=== PATIENT | female | born 1985 | race Caucasian/White ===

== ENCOUNTER 2023-02-18 00:32 | Emergency (ER) | payer MEDICAID ==
[~2023-02-18] VITALS: Ht 157.5 cm; Wt 84.1 kg
[~2023-02-18 00:32] MED LIST: CYCL-1 PO; POTA-188 PO
[2023-02-18 00:41] VITALS: BP_DIAS 118; RESP 16; TEMP 98.6; O2SAT 100
[2023-02-18] MEDS ORDERED: amLODIPine 5mg tablet PO ONE (00:55)
[2023-02-18 01:17] VITALS: BP_SYST 180; PULSE 82
== END 2023-02-18 01:18 ==
LOC: ER 00:32
DX: I10 Essential (primary) hypertension (principal); F15.10 Other stimulant abuse, uncomplicated; F11.90 Opioid use, unspecified, uncomplicated; Z79.899 Other long term (current) drug therapy
CPT/HCPCS: 99283

== ENCOUNTER 2023-12-11 15:54 | Inpatient (IN) | payer MEDICAID ==
[~2023-12-11] VITALS: Ht 157.5 cm; Wt 67.9 kg
[2023-12-11] MEDS: cloNIDine 0.3mg/24 hour patch (7 day patch) TD ONE (16:40)
[2023-12-11 17:09] LABS: BASOPHILS % (AUTO) 0.6 % (0-1); EOSINOPHILS % (AUTO) 0.3 % (0-6); HEMATOCRIT 39.9 % (35.0-45.0); HEMOGLOBIN 12.8 g/dl (12.0-16.0); LYMPHOCYTES # (AUTO) 1.2 X10'3 (1.1-4.8); LYMPHOCYTES % (AUTO) 18.4 % (21-51); MEAN CORPUSCULAR HEMOGLOBIN 23.1 PG (27.0-31.0); MEAN CORPUSCULAR VOLUME 72.2 FL (78-98); MEAN PLATELET VOLUME 7.1 FL (7.4-10.4); MONOCYTES # (AUTO) 0.5 X10'3 (0-0.9); MONOCYTES % (AUTO) 7.9 % (2-12); NEUTROPHILS # (AUTO) 4.9 X10'3 (1.8-7.7); NEUTROPHILS % (AUTO) 72.8 % (42-75); PLATELET COUNT 354 X10'3 (140-440); RED BLOOD COUNT 5.52 X10'6 (4.20-5.60); RED CELL DISTRIBUTION WIDTH 20.4 % (11.5-14.5); WHITE BLOOD COUNT 6.7 X10'3 (4.5-11.0)
[2023-12-11] MEDS: cloNIDine 0.1 mg tablet PO ONE (17:18)
[2023-12-11] MEDS: ketorolac tromethamine 15mg/ml inj. IV ONE (17:18)
[2023-12-11] MEDS: methadone 10mg tablet PO ONE (17:18)
[2023-12-11] MEDS: metoprolol succinate 25mg (24-HOUR) SR. Tablet PO STA (17:18)
[2023-12-11] MEDS: normal saline 1000ML IV soln IVB ONE ×2 (17:24→18:51)
[2023-12-11 17:55] LABS: ALANINE AMINOTRANSFERASE 49 U/L (12-78); ALBUMIN 3.5 G/DL (3.4-5.0); ALBUMIN/GLOBULIN RATIO 0.8 (1.1-1.5); ALKALINE PHOSPHATASE 91 IU/L (46-116); ANION GAP 11 (8-16); ASPARTATE AMINO TRANSFERASE 32 U/L (10-37); BILIRUBIN,TOTAL 0.7 MG/DL (0.1-1.0); BLOOD UREA NITROGEN 7 MG/DL (7-18); BUN/CREATININE RATIO 11.1 (10.0-20.0); CALCIUM 9.1 MG/DL (8.5-10.1); CHLORIDE 105 MMOL/L (99-107); CREATININE 0.63 MG/DL (0.40-0.90); GLUCOSE 104 MG/DL (70-104); POTASSIUM 3.2 MMOL/L (3.5-5.1); SODIUM 139 MMOL/L (135-145); TOTAL CARBON DIOXIDE 22.7 MMOL/L (24-32); TOTAL PROTEIN 8.1 G/DL (6.4-8.2); eCRCL 95 ML/MIN; eGFR > 90 ML/MIN
[2023-12-11 18:02] LABS: BILIRUBIN,DIRECT 0.1 MG/DL (0-0.3); ETHANOL < 10 MG/DL (<10); LIPASE 25 U/L (16-77); MAGNESIUM 2.1 MG/DL (1.5-2.4)
[2023-12-11] MEDS: magnesium 2GM in 50ml NS 50 ML IV ONE (18:08)
[2023-12-11] MEDS: LORazepam 2 mg/ml vial IV ONE (18:52)
[2023-12-11] MEDS: enoxaparin 100mg/ml syringe SUBCUT ONE (18:52)
[2023-12-11] MEDS: aspirin 81mg tab.chew PO ONE (18:54)
[2023-12-11 19:07] LABS: APTT 27 SECONDS (22-32); INR 1.1 INR; PROTHROMBIN TIME 11.4 SECONDS (9.0-12.0)
[2023-12-11] MEDS ORDERED: magnesium 4gm in 100ml NS 100 ML IV PRN (19:50)
[2023-12-11] MEDS ORDERED: potassium Cl 40MEQ/1/2NS 520ml 520 ML IV PRN (19:50)
[2023-12-11] MEDS ORDERED: potassium Cl 20 mEq SR tablet PO PRN (19:50)
[2023-12-11] MEDS ORDERED: magnesium 2GM in 50ml NS 50 ML IV PRN (19:50)
[2023-12-11] MEDS: normal saline 1000ml 1,000 ML IV SCH (19:50)
[2023-12-11] MEDS ORDERED: magnesium Cl slow-release 64mg tablet PO PRN (19:50)
[2023-12-11] MEDS ORDERED: acetaminophen 325mg tablet PO PRN (19:50)
[2023-12-11] MEDS ORDERED: magnesium hydroxide 30ml (MOM) UD suspension PO PRN (19:50)
[2023-12-11] MEDS: K and/or MAG REPLACEMENT MC SCH (20:00)
[2023-12-11 21:55] VITALS: BP 158/69; PULSE 56; RESP 15; TEMP 97.9; O2SAT 99
[2023-12-11] MEDS: potassium Cl 20 mEq SR tablet PO PRN (22:07)
[2023-12-12 03:17] LABS: URINE HCG NEGATIVE (NEG)
[2023-12-12 03:39] LABS: URINE AMPHETAMINE SCREEN POSITIVE (Neg); URINE BARBITUATE SCREEN NEGATIVE (Neg); URINE BENZODIAZEPINES SCREEN NEGATIVE (Neg); URINE CANNABINOID SCREEN POSITIVE (Neg); URINE COCAINE SCREEN NEGATIVE (Neg); URINE METHADONE SCREEN POSITIVE (Neg); URINE OPIATE SCREEN NEGATIVE (Neg); URINE PHENCYCLIDINE SCREEN NEGATIVE (Neg)
[2023-12-12 03:47] LABS: BILIRUBIN,URINE NEGATIVE (Neg); CLARITY,URINE CLOUDY (Clear); COLOR,URINE STRAW (Yellow); GLUCOSE, URINE NEGATIVE (Neg); KETONES,URINE NEGATIVE (Neg); LEUKOCYTE ESTERASE ,URINE SMALL (Neg); NITRITES, URINE NEGATIVE (Neg); OCCULT BLOOD,URINE NEGATIVE (Neg); PROTEIN,URINE NEGATIVE (Neg); UROBILINOGEN,URINE 0.2 E.U/dL (0.2-1.0)
[2023-12-12 03:52] LABS: UA COLLECTION TYPE NON-SPECIFIED
[2023-12-12 03:53] LABS: SQUAMOUS EPITHELIAL CELL,UR MANY /LPF (FEW)
[2023-12-12 03:54] LABS: BACTERIA,URINE 4+ /HPF (Neg); RBC,URINE NONE SEEN /HPF (0-2); RENAL CELLS, URINE FEW /HPF; WBC CLUMPS,URINE FEW /HPF (NEGATIVE); WBC,URINE 20-30 /HPF (0-4)
[2023-12-12 05:40] LABS: BASOPHILS % (AUTO) 0.7 % (0-1); EOSINOPHILS # (AUTO) 0.1 X10'3 (0-0.9); EOSINOPHILS % (AUTO) 1.8 % (0-6); HEMATOCRIT 37.8 % (35.0-45.0); HEMOGLOBIN 11.7 g/dl (12.0-16.0); LYMPHOCYTES # (AUTO) 2.1 X10'3 (1.1-4.8); LYMPHOCYTES % (AUTO) 28.9 % (21-51); MEAN CORPUSCULAR HEMOGLOBIN 22.6 PG (27.0-31.0); MEAN PLATELET VOLUME 7.5 FL (7.4-10.4); MONOCYTES # (AUTO) 0.7 X10'3 (0-0.9); NEUTROPHILS # (AUTO) 4.3 X10'3 (1.8-7.7); NEUTROPHILS % (AUTO) 59.6 % (42-75); PLATELET COUNT 298 X10'3 (140-440); RED BLOOD COUNT 5.17 X10'6 (4.20-5.60); WHITE BLOOD COUNT 7.2 X10'3 (4.5-11.0)
[2023-12-12 06:00] VITALS: BP 168/102; PULSE 66; RESP 15; TEMP 97.6; O2SAT 97
[2023-12-12 06:00] LABS: ALBUMIN 2.8 G/DL (3.4-5.0); ANION GAP 10 (8-16); BLOOD UREA NITROGEN 8 MG/DL (7-18); BUN/CREATININE RATIO 12.3 (10.0-20.0); CALCIUM 8.6 MG/DL (8.5-10.1); CHLORIDE 109 MMOL/L (99-107); CREATINE KINASE 80 U/L (26-192); CREATININE 0.65 MG/DL (0.40-0.90); GLUCOSE 80 MG/DL (70-104); MAGNESIUM 2.4 MG/DL (1.5-2.4); POTASSIUM 3.3 MMOL/L (3.5-5.1); SODIUM 141 MMOL/L (135-145); TOTAL CARBON DIOXIDE 22.1 MMOL/L (24-32); eCRCL 92 ML/MIN; eGFR > 90 ML/MIN
[2023-12-12] MEDS: enoxaparin 40mg/0.4ml syringe SUBCUT SCH (07:54)
[2023-12-12 08:00] VITALS: RESP 14
[2023-12-12] MEDS: ondansetron/PF 4mg/2ml inj IV PRN (08:02)
[2023-12-12 10:00] VITALS: BP 169/99; PULSE 66; RESP 18; TEMP 98.2; O2SAT 98
[2023-12-12 17:00] VITALS: BP 214/120; PULSE 66
[2023-12-12] MEDS: hydrALAZINE 20mg/ml inj. IV ONE (17:26)
[2023-12-12 17:55] VITALS: BP 164/121; PULSE 78; RESP 16
[2023-12-12 18:00] VITALS: BP 164/121; PULSE 66; RESP 16; TEMP 97.2; O2SAT 100
[2023-12-12] MEDS: LORazepam 1 MG tablet PO ONE (21:24)
[2023-12-12] MEDS: diazepam inj 5 MG/ML inj. IV ONE (21:52)
[2023-12-13] VITALS (7 sets, daily range): BP systolic 153–206; BP diastolic 109–148; PULSE 85–125; RESP 14–26; TEMP 97–98.1; O2SAT 96–100
[2023-12-13] MEDS: haloperidol lactate 5mg/ml inj IM ONE (00:44)
[2023-12-13] MEDS: diazepam inj 5 MG/ML inj. IV PRN (04:13)
[2023-12-13 06:44] LABS: BASOPHILS # (AUTO) 0.1 X10'3 (0-0.2); BASOPHILS % (AUTO) 0.7 % (0-1); EOSINOPHILS % (AUTO) 0.3 % (0-6); HEMATOCRIT 45.3 % (35.0-45.0); HEMOGLOBIN 14.5 g/dl (12.0-16.0); LYMPHOCYTES % (AUTO) 19.8 % (21-51); MEAN CORPUSCULAR HEMOGLOBIN 23.1 PG (27.0-31.0); MEAN CORPUSCULAR VOLUME 72.1 FL (78-98); MEAN PLATELET VOLUME 7.5 FL (7.4-10.4); MONOCYTES # (AUTO) 0.7 X10'3 (0-0.9); MONOCYTES % (AUTO) 6.7 % (2-12); NEUTROPHILS # (AUTO) 7.4 X10'3 (1.8-7.7); NEUTROPHILS % (AUTO) 72.5 % (42-75); PLATELET COUNT 365 X10'3 (140-440); RED BLOOD COUNT 6.29 X10'6 (4.20-5.60); RED CELL DISTRIBUTION WIDTH 20.7 % (11.5-14.5); WHITE BLOOD COUNT 10.2 X10'3 (4.5-11.0)
[2023-12-13 07:00] LABS: ALBUMIN 3.7 G/DL (3.4-5.0); ANION GAP 13 (8-16); BLOOD UREA NITROGEN 9 MG/DL (7-18); BUN/CREATININE RATIO 16.4 (10.0-20.0); CALCIUM 9.5 MG/DL (8.5-10.1); CHLORIDE 102 MMOL/L (99-107); CREATININE 0.55 MG/DL (0.40-0.90); GLUCOSE 108 MG/DL (70-104); MAGNESIUM 2.1 MG/DL (1.5-2.4); POTASSIUM 3.5 MMOL/L (3.5-5.1); SODIUM 136 MMOL/L (135-145); TOTAL CARBON DIOXIDE 21.4 MMOL/L (24-32); eCRCL 109 ML/MIN; eGFR > 90 ML/MIN
[2023-12-13 09:08] LABS: ANISOCYTOSIS 3+; MICROCYTOSIS 1+; PLATELET ESTIMATE NORMAL
[2023-12-13 09:09] LABS: POIKILOCYTOSIS FEW; STOMATOCYTES FEW
[2023-12-13] MEDS: hydrALAZINE 20mg/ml inj. IV PRN ×2 (11:14→17:22)
[2023-12-13] MEDS ORDERED: magnesium sulf-water 2g/50mL 50 ML IV PRN (12:45)
[2023-12-13] MEDS ORDERED: magnesium sulf-water 4G/100mL 100 ML IV PRN (12:45)
[2023-12-13 19:40] LABS: BILIRUBIN,URINE NEGATIVE (Neg); CLARITY,URINE CLOUDY (Clear); COLOR,URINE YELLOW (Yellow); GLUCOSE, URINE 100 mg/dl (Neg); KETONES,URINE NEGATIVE (Neg); LEUKOCYTE ESTERASE ,URINE NEGATIVE (Neg); NITRITES, URINE POSITIVE (Neg); OCCULT BLOOD,URINE TRACE-INTACT (Neg); PH,URINE 6.5 (4.8-8.0); PROTEIN,URINE 100 mg/dl (Neg)
[2023-12-13 19:46] LABS: UA COLLECTION TYPE VOIDED
[2023-12-13 19:49] LABS: BACTERIA,URINE 4+ /HPF (Neg)
[2023-12-13 19:50] LABS: SQUAMOUS EPITHELIAL CELL,UR MODERATE /LPF (FEW)
[2023-12-13 19:51] LABS: HYALINE CASTS 0-3 /LPF (NEGATIVE); TRANSITIONAL EPI CELLS,URINE FEW /HPF
[2023-12-14] MEDS: CefTRIAXone/D5W-Rocephin 1gm 50 ML IV SCH (00:39)
[2023-12-14 01:49] VITALS: BP 180/134; PULSE 107; RESP 22; TEMP 98.9; O2SAT 100
[2023-12-14 06:00] VITALS: BP 148/106; PULSE 109; RESP 22; TEMP 97.8; O2SAT 99
[2023-12-14 06:40] LABS: ALBUMIN 3.2 G/DL (3.4-5.0); ANION GAP 11 (8-16); BASOPHILS % (AUTO) 0.2 % (0-1); BLOOD UREA NITROGEN 14 MG/DL (7-18); BUN/CREATININE RATIO 21.9 (10.0-20.0); CALCIUM 9.6 MG/DL (8.5-10.1); CHLORIDE 104 MMOL/L (99-107); CREATININE 0.64 MG/DL (0.40-0.90); EOSINOPHILS % (AUTO) 0.2 % (0-6); GLUCOSE 113 MG/DL (70-104); HEMATOCRIT 45.2 % (35.0-45.0); HEMOGLOBIN 14.5 g/dl (12.0-16.0); LYMPHOCYTES # (AUTO) 1.8 X10'3 (1.1-4.8); LYMPHOCYTES % (AUTO) 15.9 % (21-51); MAGNESIUM 2.1 MG/DL (1.5-2.4); MEAN CORPUSCULAR HEMOGLOBIN 23.1 PG (27.0-31.0); MEAN CORPUSCULAR HGB CONC 32.1 g/dL (33.0-36.5); MEAN CORPUSCULAR VOLUME 71.9 FL (78-98); MEAN PLATELET VOLUME 7.8 FL (7.4-10.4); MONOCYTES # (AUTO) 1.3 X10'3 (0-0.9); MONOCYTES % (AUTO) 10.8 % (2-12); NEUTROPHILS # (AUTO) 8.5 X10'3 (1.8-7.7); NEUTROPHILS % (AUTO) 72.9 % (42-75); PLATELET COUNT 383 X10'3 (140-440); POTASSIUM 3.3 MMOL/L (3.5-5.1); RED BLOOD COUNT 6.28 X10'6 (4.20-5.60); SODIUM 137 MMOL/L (135-145); WHITE BLOOD COUNT 11.6 X10'3 (4.5-11.0); eCRCL 93 ML/MIN; eGFR > 90 ML/MIN
[2023-12-14 08:00] VITALS: RESP 22; O2SAT 100
[2023-12-14 10:00] VITALS: BP 150/94; PULSE 114; RESP 20; TEMP 97.6; O2SAT 98
[2023-12-14] MEDS ORDERED: hydrALAZINE 20mg/ml inj. IV PRN (14:00)
== END 2023-12-14 17:42 | disposition left against medical advice (07) | DRG 52 ==
LOC: ER 15:54 → ED HOLD 19:49 → ORTHO 4S 21:45
PROVIDERS: ADMIT Internal Medicine Critical Care Medicine; ATTEND Internal Medicine
DX: G93.41 Metabolic encephalopathy (principal); E87.20 Acidosis, unspecified; I21.A1 Myocardial infarction type 2; E86.0 Dehydration; Z53.21 Procedure and treatment not carried out due to patient leaving prior to being seen by health care provider; F11.13 Opioid abuse with withdrawal; F32.A Depression, unspecified; I10 Essential (primary) hypertension; F19.10 Other psychoactive substance abuse, uncomplicated; E87.6 Hypokalemia; N39.0 Urinary tract infection, site not specified
CPT/HCPCS: 36415; 71045; 80048; 80076; 80305; 80320; 81001; 81025; 82550; 83605; 83690; 83735; 84145; 84484; 85008; 85025; 85610; 85651; 85730; 87077; 87081; 87088; 87186; 93005; 93306; 99285; G0378; J0360; J0696; J1630; J1650; J1885; J2060; J2405; J3360; J3475; J7030